=== PATIENT | female | born 1960 | race Caucasian/White ===

== ENCOUNTER → 2022-05-04 | Outpatient (CLI) | payer OTHER ==
[~2022-05-04] MED LIST: B-12 500 MCG PO; CITRUS CALCIUM1 TA1; ELDERBERRY IMMUNE; PRENATAL DHA 200 SG PO; VITAMIN C500 MG PO; [UNRECOGNIZED DRUG - CODE]
== END ==
LOC: MC.RAD 09:26
DX: Z12.31 Encounter for screening mammogram for malignant neoplasm of breast (principal)

== ENCOUNTER 2022-05-05 07:55 | Day surgery (SDC) | payer OTHER ==
[~2022-05-05] VITALS: Ht 170.2 cm; Wt 73.7 kg
[2022-05-05 09:38] VITALS: BP 119/80; PULSE 78; TEMP 97.9
[2022-05-05] MEDS ORDERED: [UNRECOGNIZED DRUG - CODE] (09:53)
[2022-05-05] MEDS ORDERED: CITRUS CALCIUM1 TA1 (09:54)
[2022-05-05] MEDS ORDERED: PRENATAL DHA 200 SG PO (09:56)
[2022-05-05] MEDS ORDERED: VITAMIN C500 MG PO (09:57)
[2022-05-05] MEDS ORDERED: B-12 500 MCG PO (09:58)
[2022-05-05] MEDS ORDERED: ELDERBERRY IMMUNE (10:00)
[2022-05-05 10:05] VITALS: BP 119/80; PULSE 66
--- NOTE | 2022-05-05 10:05 | NUR ---
PATIENT RETURNS TO ROOM 4 VIA CART. ASSIST X 2 TO CHAIR. VITAL SIGNS WNL. IS WAITING DOWNSTAIRS. PATIENT REQUESTS WATER AND A MUFFIN. WILL CONTINUE TO MUFFIN.
[2022-05-05 10:20] VITALS: BP 128/52; PULSE 63
--- NOTE | 2022-05-05 10:20 | NUR ---
PATIENT IS AWAKE AND ORIENTED. VITAL SIGNS WNL. IV REMOVED. WILL CONTINUE TO MONITOR.
[2022-05-05 10:35] VITALS: BP 132/69; PULSE 67
--- NOTE | 2022-05-05 10:35 | NUR ---
PATIENT IS READY FOR DISCHARGE. FINAL SET OF VITALS WNL. DISCHARGE INSTRUCTIONS REVIEWED. I WILL WHEEL HER DOWNSTAIRS AFTER SHE GETS DRESSED.
== END 2022-05-05 10:50 | disposition home or self-care (01) ==
LOC: SDCO 07:55
DX: Z12.11 Encounter for screening for malignant neoplasm of colon (principal); Z86.010 Personal history of colon polyps; Z87.891 Personal history of nicotine dependence
CPT/HCPCS: J2704; J7120

== ENCOUNTER → 2024-07-01 | Outpatient (CLI) | payer MEDICARE, BC | LOC: MC.RAD 10:18 | DX: Z12.31 Encounter for screening mammogram for malignant neoplasm of breast (principal) ==